=== PATIENT | male | born 1995 | race Caucasian/White ===

== ENCOUNTER 2017-05-24 12:28 | Emergency (ER) | payer OTHER ==
[~2017-05-24] VITALS: Ht 182.9 cm; Wt 73.6 kg
[2017-05-24 12:47] VITALS: BP 135/76; PULSE 54; TEMP 98.1
== END 2017-05-24 14:00 | disposition home or self-care (01) ==
LOC: COL.ER 12:28
DX: K12.0 Recurrent oral aphthae (principal); F17.220 Nicotine dependence, chewing tobacco, uncomplicated

== ENCOUNTER 2017-05-30 15:10 | Emergency (ER) | payer OTHER ==
[~2017-05-30] VITALS: Ht 182.9 cm; Wt 75.0 kg
[2017-05-30 15:14] VITALS: TEMP 97.9
[2017-05-30 16:21] LABS: INFLUENZA A NEGATIVE; INFLUENZA B NEGATIVE
[2017-05-30] MEDS ORDERED: BENADRYL25 M2 PO (16:45)
[2017-05-30] MEDS ORDERED: SUDAFED30 MG PO (16:45)
[2017-05-30 17:03] VITALS: BP 128/74; PULSE 87
== END 2017-05-30 17:01 | disposition home or self-care (01) ==
LOC: COL.ER 15:10
PROVIDERS: Emergency Medicine
DX: J11.1 Influenza due to unidentified influenza virus with other respiratory manifestations (principal); B34.9 Viral infection, unspecified